=== PATIENT | male | born 1960 | race Caucasian/White ===

== ENCOUNTER 2017-11-15 20:26 | Inpatient (IN) | payer OTHER ==
[~2017-11-15] VITALS: Ht 160 cm; Wt 71.7 kg
[~2017-11-15 20:26] MED LIST: ALBU90AE INH; AMLO5TAB88 PO; BECL8.7A6 INH; NAPR-681 PO; PROAIR INH
[2017-11-16 01:16] LABS: CLARITY URINE CLOUDY (CLEAR); COLOR URINE ORANGE (YELLOW); KETONES URINE NEGATIVE (NEGATIVE); LEUKOCYTE ESTERASE URINE 1+ (NEGATIVE); NITRITE URINE POSITIVE (NEGATIVE); OCCULT BLOOD URINE 1+ (NEGATIVE); PROTEIN URINE 1+ (NEGATIVE); SPECIFIC GRAVITY URINE 1.037 (1.005-1.030); UROBILINOGEN URINE 0.2 E.U./dL (0.2-1.0)
[2017-11-16] MEDS ORDERED: SODIUM CHLORIDE 0.9% 1,000 ML IV ONE ×2 (01:29→03:15)
[2017-11-16] MEDS ORDERED: KETOROLAC 30MG/ML VIAL IV STA (01:29)
[2017-11-16] MEDS ORDERED: ONDANSETRON HCL 4MG/2ML VIAL IV ONE (01:45)
[2017-11-16 02:07] LABS: HEMATOCRIT. 42.1 % (42.0-52.0); HEMOGLOBIN. 14.5 g/dL (14.0-18.0); MEAN CORPUSCULAR HEMOGLOBIN 30.9 pg (28.0-32.0); MEAN PLATELET VOLUME 8.4 fl (7.4-10.4); PLATELET 205 x1000/uL (130-400); RED BLOOD CELL COUNT 4.68 mill/uL (4.7-6.1); RED CELL DISTRIBUTION WIDTH 13.7 % (11.6-14.6)
[2017-11-16 02:13] LABS: CHLORIDE 102 mEq/L (98-107); INR 1.5; PROTHROMBIN TIME 15.4 sec (9.4-11.6)
[2017-11-16 02:36] LABS: PLATELET ESTIMATE NORMAL
[2017-11-16] MEDS ORDERED: CEFTRIAXONE 1 G PREMIX 50 ML IV ONE (02:45)
[2017-11-16] MEDS ORDERED: MORPHINE SULFATE 4 MG/ML CPJ (NOT FOR IM USE) IV ONE (06:15)
[2017-11-16] MEDS ORDERED: GUAIFENESIN 200MG/10ML SUGAR FREE UDC PO PRN (10:30)
[2017-11-16] MEDS ORDERED: ACETAMINOPHEN 325MG TABLET PO PRN (10:30)
[2017-11-16] MEDS ORDERED: DIPHENHYDRAMINE 50MG/ML VIAL IV PRN (10:30)
[2017-11-16] MEDS ORDERED: CLONIDINE 0.1MG TABLET PO PRN (10:30)
[2017-11-16] MEDS ORDERED: ONDANSETRON HCL 4MG/2ML VIAL IV PRN (10:30)
[2017-11-16] MEDS ORDERED: IPRATROPIUM/ALBUTEROL 0.5-3(2.5)MG/3ML NEB INH PRN (10:30)
[2017-11-16] MEDS ORDERED: KETOROLAC 15MG/ML VIAL IV PRN (10:30)
[2017-11-16] MEDS ORDERED: DOCUSATE SODIUM 100MG CAPSULE PO PRN (10:30)
[2017-11-16] MEDS ORDERED: LORAZEPAM 0.5MG TABLET PO PRN (10:30)
[2017-11-16] MEDS ORDERED: NITROGLYCERIN 0.4MG TABLET SL SL PRN (10:30)
[2017-11-16] MEDS ORDERED: MAGNESIUM/ALUMINUM HYDROXIDE/SIMETHICONE 30ML UDC PO PRN (10:30)
[2017-11-16] MEDS ORDERED: PIPERACILLIN/TAZ 3.375G PREMIX 50 ML IV SCH (15:00)
[2017-11-16] MEDS ORDERED: NA PHOS,M-B/NA PHOS,DI-BA ENEMA 118ML PR PRN (15:14)
[2017-11-16] MEDS ORDERED: ZOLPIDEM TARTRATE 5MG TABLET PO PRN (15:16)
[2017-11-16] MEDS ORDERED: TRAMADOL 50MG TABLET PO PRN (15:17)
[2017-11-16 16:00] VITALS: BP 113/69
[2017-11-16] MEDS ORDERED: PNEUMOCOCCAL 23-VAL P-SAC VAC 0.5 ML IM ONE (16:45)
[2017-11-16] MEDS: PIPERACILLIN/TAZ 3.375G PREMIX 50 ML IV SCH ×2 (17:17→23:39)
[2017-11-16] MEDS: ENOXAPARIN 40MG/0.4ML SYR SUBCUT SCH (17:18)
[2017-11-16 20:00] VITALS: BP 124/73
[2017-11-16] MEDS: DEXT 5%/0.45% NACL 1000ML 1,000 ML IV SCH ×2 (20:17→20:21)
[2017-11-16] MEDS: MORPHINE SULFATE 4 MG/ML CPJ (NOT FOR IM USE) IV PRN (21:06)
[2017-11-16 23:43] VITALS: BP 114/72
[2017-11-17 03:10] VITALS: BP 142/75
[2017-11-17] MEDS: MORPHINE SULFATE 4 MG/ML CPJ (NOT FOR IM USE) IV PRN (03:16)
[2017-11-17] MEDS: PIPERACILLIN/TAZ 3.375G PREMIX 50 ML IV SCH ×4 (05:24→23:35)
[2017-11-17] MEDS: DEXT 5%/0.45% NACL 1000ML 1,000 ML IV SCH ×2 (06:01→18:50)
[2017-11-17 06:14] LABS: HEMATOCRIT 38.3 % (42.0-52.0); HEMOGLOBIN 12.8 g/dL (14.0-18.0); MEAN CORPUSCULAR HEMOGLOBIN 30.6 pg (28.0-32.0); MEAN CORPUSCULAR VOLUME 91.5 fL (80.0-94.0); PLATELET 133 x1000/uL (130-400); RED BLOOD CELL COUNT 4.18 mill/uL (4.7-6.1); RED CELL DISTRIBUTION WIDTH 13.9 % (11.6-14.6)
[2017-11-17 08:00] VITALS: BP 107/64
[2017-11-17] MEDS: PANTOPRAZOLE SODIUM 40 MG/VIAL IV SCH (09:27)
[2017-11-17 12:00] VITALS: BP 110/70
[2017-11-17 12:20] LABS: INR 1.3; PARTIAL THROMBOPLASTIN TIME 30.2 sec (23.4-31.0); PROTHROMBIN TIME 13.4 sec (9.4-11.6)
[2017-11-17 12:21] LABS: HEMATOCRIT 36.9 % (42.0-52.0); HEMOGLOBIN 12.6 g/dL (14.0-18.0); MEAN CORPUSCULAR HEMOGLOBIN 31.1 pg (28.0-32.0); MEAN CORPUSCULAR VOLUME 91.1 fL (80.0-94.0); PLATELET 112 x1000/uL (130-400); RED BLOOD CELL COUNT 4.05 mill/uL (4.7-6.1); RED CELL DISTRIBUTION WIDTH 14.1 % (11.6-14.6)
[2017-11-17 12:47] LABS: CHLORIDE 107 mEq/L (98-107)
[2017-11-17] MEDS ORDERED: IOHEXOL-300 100 ML BOTTLE ONE (13:13)
[2017-11-17] MEDS ORDERED: SIMETHICONE 40 MG/0.6 ML 30ML ONE (13:13)
[2017-11-17] MEDS ORDERED: METOCLOPRAMIDE HCL 10MG/2ML VIAL ONE (14:06)
[2017-11-17] MEDS ORDERED: SUCCINYLCHOLINE CHLORIDE 200MG/10ML VIAL IV ONE (14:06)
[2017-11-17] MEDS ORDERED: NEOSTIGMINE METHYLSULFATE 1MG/ML 10 ML VIAL ONE (14:06)
[2017-11-17] MEDS ORDERED: LIDOCAINE HCL/PF 1% 10 MG/ML 5ML VIAL ONE (14:06)
[2017-11-17] MEDS ORDERED: PROPOFOL 200MG/20ML VIAL IV ONE (14:06)
[2017-11-17] MEDS ORDERED: ROCURONIUM BROMIDE 10MG/ML VIAL 5ML IV ONE (14:06)
[2017-11-17] MEDS ORDERED: GLYCOPYRROLATE 0.2 MG/ML 2ML VIAL ONE ×2 (14:06→14:48)
[2017-11-17] MEDS ORDERED: PHENYLEPHRINE HCL 10 MG/ML 1ML (IV VIAL) IV ONE (14:06)
[2017-11-17] MEDS ORDERED: MIDAZOLAM HCL 2 MG/2 ML VIAL ONE (14:11)
[2017-11-17] MEDS ORDERED: FENTANYL CITRATE/PF 50MCG/ML 2ML VIAL ONE (14:11)
[2017-11-17] MEDS ORDERED: EPHEDRINE SULFATE 50MG/ML VIAL ONE (14:48)
[2017-11-17] MEDS ORDERED: DEXAMETHASONE 4MG/ML 1ML VIAL ONE (15:18)
[2017-11-17] MEDS ORDERED: SODIUM CHLORIDE 0.9% 1,000 ML IV ONE (15:22)
[2017-11-17] MEDS ORDERED: HYDROMORPHONE HCL/PF 2MG/ML CPJ IV PRN (15:30)
[2017-11-17] MEDS ORDERED: MEPERIDINE HCL/PF 25MG/ML CPJ IV PRN (15:30)
[2017-11-17] MEDS ORDERED: ONDANSETRON HCL 4MG/2ML VIAL IV PRN (15:30)
[2017-11-17 16:00] VITALS: BP 116/76
[2017-11-17] MEDS: ENOXAPARIN 40MG/0.4ML SYR SUBCUT SCH (16:00)
[2017-11-17 20:00] VITALS: BP 121/72
[2017-11-18] VITALS (7 sets, daily range): BP systolic 94–142; BP diastolic 50–76
[2017-11-18] MEDS: PIPERACILLIN/TAZ 3.375G PREMIX 50 ML IV SCH ×4 (05:30→23:02)
[2017-11-18] MEDS: DEXT 5%/0.45% NACL 1000ML 1,000 ML IV SCH ×3 (05:30→23:01)
[2017-11-18 07:02] LABS: BASOPHILS % 0.1 % (0.0-2.0); HEMATOCRIT. 34.5 % (42.0-52.0); HEMOGLOBIN. 11.8 g/dL (14.0-18.0); MEAN CORPUSCULAR HEMOGLOBIN 31.3 pg (28.0-32.0); MEAN CORPUSCULAR VOLUME 91.1 fL (80.0-94.0); MEAN PLATELET VOLUME 9.6 fl (7.4-10.4); MONOCYTES % 6.7 % (2.0-8.0); NEUTROPHILS % 82.2 % (40.0-76.0); PLATELET 99 x1000/uL (130-400); RED BLOOD CELL COUNT 3.79 mill/uL (4.7-6.1); RED CELL DISTRIBUTION WIDTH 13.7 % (11.6-14.6)
[2017-11-18 07:38] LABS: CHLORIDE 109 mEq/L (98-107)
[2017-11-18] MEDS: PANTOPRAZOLE SODIUM 40 MG/VIAL IV SCH (08:54)
[2017-11-19] VITALS: BP 136/72
[2017-11-19 04:30] VITALS: BP 130/74
[2017-11-19] MEDS: PIPERACILLIN/TAZ 3.375G PREMIX 50 ML IV SCH (05:09)
[2017-11-19 08:00] VITALS: BP 141/74
[2017-11-19] MEDS: PANTOPRAZOLE SODIUM 40 MG/VIAL IV SCH (09:08)
[2017-11-19] MEDS: DEXT 5%/0.45% NACL 1000ML 1,000 ML IV SCH (09:55)
[2017-11-19 11:02] VITALS: BP 140/74
== END 2017-11-19 12:01 | disposition home or self-care (01) | DRG 444 ==
LOC: ER 21:29 → 5WST 11-16 03:29 → ENRESERV 11-16 14:12 → 5WST 11-16 18:17
PROVIDERS: ADMIT Internal Medicine; ATTEND Internal Medicine
PROC: BF111ZZ Fluoroscopy of Biliary and Pancreatic Ducts using Low Osmolar Contrast (ICD-10-PCS; 2017-11-17)
PROC: 0F798DZ Dilation of Common Bile Duct with Intraluminal Device, Via Natural or Artificial Opening Endoscopic (ICD-10-PCS; 2017-11-17)
PROC: 0FC98ZZ Extirpation of Matter from Common Bile Duct, Via Natural or Artificial Opening Endoscopic (ICD-10-PCS; 2017-11-17)
PROC: 0F998ZZ Drainage of Common Bile Duct, Via Natural or Artificial Opening Endoscopic (ICD-10-PCS; principal; 2017-11-17 14:00)
DX: K80.63 Calculus of gallbladder and bile duct with acute cholecystitis with obstruction (principal); E43 Unspecified severe protein-calorie malnutrition; K76.0 Fatty (change of) liver, not elsewhere classified; N39.0 Urinary tract infection, site not specified; K80.31 Calculus of bile duct with cholangitis, unspecified, with obstruction; E80.6 Other disorders of bilirubin metabolism; F17.210 Nicotine dependence, cigarettes, uncomplicated; I10 Essential (primary) hypertension; J45.909 Unspecified asthma, uncomplicated; R74.0 Nonspecific elevation of levels of transaminase and lactic acid dehydrogenase [LDH]; D72.829 Elevated white blood cell count, unspecified; Z79.899 Other long term (current) drug therapy; Z71.6 Tobacco abuse counseling; Z82.49 Family history of ischemic heart disease and other diseases of the circulatory system; Z68.28 Body mass index [BMI] 28.0-28.9, adult
CPT/HCPCS: 36415; 74181; 74328; 76705; 80048; 80053; 80076; 81003; 82248; 83036; 83690; 85025; 85027; 85610; 85730; 87077; 87086; 90732; 93970; 96361; 96365; 96375; 99285; C1726; C1769; C2625; C9113; J0330; J0696; J1100; J1650; J1885; J2250; J2270; J2370; J2405; J2543; J2704; J2710; J2765; J3010; J3490; J7030; J7050; Q9967

== ENCOUNTER 2017-12-10 03:55 | Inpatient (IN) | payer MEDICARE, OTHER ==
[~2017-12-10] VITALS: Ht 160 cm; Wt 65.8 kg
[2017-12-10] MEDS ORDERED: ONDANSETRON HCL 4MG/2ML VIAL IV STA ×2 (08:08→10:43)
[2017-12-10] MEDS ORDERED: SODIUM CHLORIDE 0.9% 1,000 ML IV ONE ×2 (08:08→10:43)
[2017-12-10] MEDS ORDERED: MORPHINE SULFATE 4 MG/ML CPJ (NOT FOR IM USE) IV STA ×2 (08:08→10:43)
[2017-12-10 09:01] LABS: CLARITY URINE CLEAR (CLEAR); COLOR URINE DARK YELLOW (YELLOW); KETONES URINE NEGATIVE (NEGATIVE); LEUKOCYTE ESTERASE URINE 1+ (NEGATIVE); NITRITE URINE NEGATIVE (NEGATIVE); OCCULT BLOOD URINE NEGATIVE (NEGATIVE); PH URINE >=9.0 (4.5-8.0); PROTEIN URINE 1+ (NEGATIVE); SPECIFIC GRAVITY URINE 1.035 (1.005-1.030)
[2017-12-10 09:13] LABS: HEMATOCRIT. 40.4 % (42.0-52.0); HEMOGLOBIN. 13.9 g/dL (14.0-18.0); MEAN CORPUSCULAR HEMOGLOBIN 30.4 pg (28.0-32.0); MEAN CORPUSCULAR VOLUME 88.4 fL (80.0-94.0); MEAN PLATELET VOLUME 7.8 fl (7.4-10.4); PLATELET 231 x1000/uL (130-400); RED BLOOD CELL COUNT 4.56 mill/uL (4.7-6.1); RED CELL DISTRIBUTION WIDTH 13.7 % (11.6-14.6)
[2017-12-10 09:17] LABS: CHLORIDE 105 mEq/L (98-107)
[2017-12-10 09:52] LABS: PLATELET ESTIMATE NORMAL
[2017-12-10] MEDS ORDERED: PIPERACILLIN/TAZ 3.375G PREMIX 50 ML IV ONE (12:15)
[2017-12-10] MEDS ORDERED: ONDANSETRON HCL 4MG/2ML VIAL IV PRN (14:30)
[2017-12-10] MEDS ORDERED: MORPHINE SULFATE 4 MG/ML CPJ (NOT FOR IM USE) IV PRN (14:30)
[2017-12-10] MEDS ORDERED: ACETAMINOPHEN 500MG TABLET PO ONE (21:30)
[2017-12-10 23:11] VITALS: BP 107/66
[2017-12-11] MEDS: PIPERACILLIN/TAZ 3.375G PREMIX 50 ML IV SCH ×3 (01:02→14:57)
[2017-12-11] MEDS: PANTOPRAZOLE SODIUM 40 MG/VIAL IV SCH ×2 (01:02→09:22)
[2017-12-11] MEDS: DEXT 5%/0.45% NACL 1000ML 1,000 ML IV SCH ×3 (01:03→14:56)
[2017-12-11 06:44] LABS: BASOPHILS % 0.1 % (0.0-2.0); EOSINOPHILS % 2.6 % (0.0-5.0); HEMATOCRIT. 36.1 % (42.0-52.0); HEMOGLOBIN. 12.5 g/dL (14.0-18.0); LYMPHOCYTES % 21.3 % (20.0-50.0); MEAN CORPUSCULAR VOLUME 89.6 fL (80.0-94.0); MEAN PLATELET VOLUME 7.9 fl (7.4-10.4); MONOCYTES % 7.8 % (2.0-8.0); NEUTROPHILS % 68.2 % (40.0-76.0); PLATELET 177 x1000/uL (130-400); RED BLOOD CELL COUNT 4.03 mill/uL (4.7-6.1); RED CELL DISTRIBUTION WIDTH 13.9 % (11.6-14.6)
[2017-12-11 06:55] LABS: INR 1.4; PARTIAL THROMBOPLASTIN TIME 27.4 sec (23.4-31.0); PROTHROMBIN TIME 14.5 sec (9.4-11.6)
[2017-12-11 07:38] LABS: CHLORIDE 110 mEq/L (98-107)
[2017-12-11 08:00] VITALS: BP 106/62
[2017-12-11 12:00] VITALS: BP 90/57
[2017-12-11 12:46] LABS: HEPATITIS B SURFACE ANTIGEN NEGATIVE
[2017-12-11 13:13] LABS: HEPATITIS B CORE AB IGM NEGATIVE
[2017-12-11 13:15] LABS: HEPATITIS A AB IGM NEGATIVE (NEGATIVE)
[2017-12-11 18:08] VITALS: BP 119/72
== END 2017-12-11 18:26 | disposition home or self-care (01) | DRG 445 ==
LOC: ER 03:55 → 6EST 13:05 → ENRESERV 19:00
PROVIDERS: ADMIT Internal Medicine; ATTEND Internal Medicine
DX: K80.70 Calculus of gallbladder and bile duct without cholecystitis without obstruction (principal); E44.1 Mild protein-calorie malnutrition; E87.8 Other disorders of electrolyte and fluid balance, not elsewhere classified; N39.0 Urinary tract infection, site not specified; F17.210 Nicotine dependence, cigarettes, uncomplicated; I10 Essential (primary) hypertension; J45.909 Unspecified asthma, uncomplicated; K57.30 Diverticulosis of large intestine without perforation or abscess without bleeding; R74.0 Nonspecific elevation of levels of transaminase and lactic acid dehydrogenase [LDH]; Z86.73 Personal history of transient ischemic attack (TIA), and cerebral infarction without residual deficits; Z87.440 Personal history of urinary (tract) infections; Z90.49 Acquired absence of other specified parts of digestive tract; Z79.899 Other long term (current) drug therapy; Z68.25 Body mass index [BMI] 25.0-25.9, adult
CPT/HCPCS: 36415; 71045; 74176; 74181; 76700; 80053; 81003; 82248; 83690; 85025; 85610; 85730; 86705; 86709; 86803; 87040; 87340; 93005; 96361; 96365; 96375; 96376; 99285; C9113; J2270; J2405; J2543; J7030

== ENCOUNTER 2020-02-04 20:23 | Inpatient (IN) | payer SELFPAY ==
[~2020-02-04] VITALS: Ht 160 cm; Wt 63.5 kg
[2020-02-04] MEDS ORDERED: FAMOTIDINE 20MG/2ML VIAL IV STA (20:39)
[2020-02-04] MEDS ORDERED: MORPHINE SULFATE 4 MG/ML CPJ (NOT FOR IM USE) IV STA (20:39)
[2020-02-04] MEDS ORDERED: ONDANSETRON HCL 4MG/2ML INJ IV STA (20:39)
[2020-02-04] MEDS ORDERED: SODIUM CHLORIDE 0.9% 1,000 ML IV ONE (20:39)
[2020-02-04 21:11] LABS: HEMATOCRIT. 41.3 % (42.0-52.0); HEMOGLOBIN. 14.2 g/dL (14.0-18.0); MEAN CORPUSCULAR HEMOGLOBIN 31.3 pg (28.0-32.0); MEAN CORPUSCULAR VOLUME 90.7 fL (80.0-94.0); MEAN PLATELET VOLUME 8.3 fl (7.4-10.4); PLATELET 369 x1000/uL (130-400); RED BLOOD CELL COUNT 4.55 mill/uL (4.7-6.1); RED CELL DISTRIBUTION WIDTH 13.8 % (11.6-14.6)
[2020-02-04 21:15] LABS: CHLORIDE 103 mEq/L (98-107)
[2020-02-04 21:19] LABS: ETHANOL BLOOD < 10 mg/dL
[2020-02-04 21:21] LABS: INR 1.1; PROTHROMBIN TIME 11.7 sec (9.6-11.0)
[2020-02-04] MEDS ORDERED: PIPERACILLIN/TAZ 3.375G PREMIX 50 ML IV ONE (21:45)
[2020-02-04 22:01] LABS: PLATELET ESTIMATE NORMAL
[2020-02-04 22:14] LABS: AMYLASE 64 IU/L (25-115)
[2020-02-04] MEDS: PIPERACILLIN/TAZ 3.375G PREMIX 50 ML IV SCH (23:00)
[2020-02-04] MEDS ORDERED: ONDANSETRON HCL 4MG/2ML INJ IV PRN (23:15)
[2020-02-04] MEDS ORDERED: LORAZEPAM 0.5MG TABLET PO PRN (23:15)
[2020-02-04] MEDS ORDERED: DOCUSATE SODIUM 100MG CAPSULE PO PRN (23:15)
[2020-02-04] MEDS ORDERED: TRAMADOL 50MG TABLET PO PRN (23:15)
[2020-02-04] MEDS ORDERED: IPRATROPIUM/ALBUTEROL 0.5-3(2.5)MG/3ML NEB ORI PRN (23:15)
[2020-02-04] MEDS ORDERED: NITROGLYCERIN 0.4MG TABLET SL SL PRN (23:15)
[2020-02-04] MEDS ORDERED: ACETAMINOPHEN 325MG TABLET PO PRN (23:15)
[2020-02-04] MEDS ORDERED: MAGNESIUM/ALUMINUM HYDROXIDE/SIMETHICONE 30ML UDC PO PRN (23:15)
[2020-02-04] MEDS ORDERED: GUAIFENESIN 200MG/10ML SUGAR FREE UDC PO PRN (23:15)
[2020-02-04] MEDS ORDERED: ZOLPIDEM TARTRATE 5MG TABLET PO PRN (23:15)
[2020-02-04] MEDS ORDERED: CLONIDINE 0.1MG TABLET PO PRN (23:15)
[2020-02-04] MEDS ORDERED: KETOROLAC 15MG/ML VIAL IV PRN (23:15)
[2020-02-04 23:18] LABS: CLARITY URINE CLEAR (CLEAR); COLOR URINE DARK YELLOW (YELLOW); KETONES URINE NEGATIVE (NEGATIVE); LEUKOCYTE ESTERASE URINE 1+ (NEGATIVE); NITRITE URINE POSITIVE (NEGATIVE); OCCULT BLOOD URINE TRACE (NEGATIVE); PROTEIN URINE 1+ (NEGATIVE); SPECIFIC GRAVITY URINE 1.022 (1.005-1.030)
[2020-02-04 23:28] LABS: *AMPHETAMINES SCREEN URINE NEGATIVE (NEGATIVE); *BARBITURATES SCREEN URINE NEGATIVE (NEGATIVE); *BENZODIAZEPINES SCREEN URINE NEGATIVE (NEGATIVE); CANNABINOID URINE SCREEN NEGATIVE (NEGATIVE); METHADONE URINE SCREEN NEGATIVE (NEGATIVE); OPIATES URINE SCREEN PRESUMTIVE POSITIVE (NEGATIVE); PHENCYCLIDINE URINE SCREEN NEGATIVE (NEGATIVE)
[2020-02-04 23:29] LABS: *COCAINE SCREEN URINE NEGATIVE (NEGATIVE)
[2020-02-04] MEDS: DEXT 5%/0.45% NACL 1000ML 1,000 ML IV SCH (23:32)
[2020-02-05] MEDS: PIPERACILLIN/TAZ 3.375G PREMIX 50 ML IV SCH (01:06)
[2020-02-05] MEDS: ASCORBIC ACID 500 MG TABLET PO SCH ×2 (08:47→22:35)
[2020-02-05] MEDS: ZINC SULFATE 220 MG ( 50 ) CAPSULE PO SCH (08:47)
[2020-02-05] MEDS: PANTOPRAZOLE SODIUM 40 MG/VIAL IV SCH (08:56)
[2020-02-05] MEDS ORDERED: ENOXAPARIN 40MG/0.4ML SYR SUBCUT SCH (09:00)
[2020-02-05] MEDS: AMLODIPINE 5MG TABLET PO SCH (09:23)
[2020-02-05] MEDS ORDERED: PIPERACILLIN/TAZ 3.375G PREMIX 50 ML IV SCH (10:30)
[2020-02-05 13:29] LABS: HEMATOCRIT 36.1 % (42.0-52.0); HEMOGLOBIN 12.5 g/dL (14.0-18.0); MEAN CORPUSCULAR HEMOGLOBIN 31.4 pg (28.0-32.0); MEAN CORPUSCULAR VOLUME 90.5 fL (80.0-94.0); PLATELET 299 x1000/uL (130-400); RED BLOOD CELL COUNT 3.99 mill/uL (4.7-6.1); RED CELL DISTRIBUTION WIDTH 13.9 % (11.6-14.6)
[2020-02-05 13:31] LABS: CHLORIDE 107 mEq/L (98-107)
[2020-02-05 15:09] VITALS: BP 122/65
[2020-02-05] MEDS: PIPERACILLIN/TAZOBACTAM 3.375 G in DEXT 5% WATER 100 ML IV SCH (18:18)
[2020-02-05 20:00] VITALS: BP 118/64
[2020-02-05] MEDS: DEXT 5%/0.45% NACL 1000ML 1,000 ML IV SCH (22:36)
[2020-02-06] VITALS: BP 115/62
[2020-02-06] MEDS: PIPERACILLIN/TAZOBACTAM 3.375 G in DEXT 5% WATER 100 ML IV SCH ×4 (00:05→18:52)
[2020-02-06 04:00] VITALS: BP 107/66
[2020-02-06 05:38] LABS: CHLORIDE 109 mEq/L (98-107)
[2020-02-06 05:40] LABS: BASOPHILS % 0.3 % (0.0-2.0); EOSINOPHILS % 1.5 % (0.0-5.0); HEMATOCRIT. 35.4 % (42.0-52.0); HEMOGLOBIN. 12.1 g/dL (14.0-18.0); LYMPHOCYTES % 23.5 % (20.0-50.0); MEAN CORPUSCULAR HEMOGLOBIN 31.3 pg (28.0-32.0); MEAN CORPUSCULAR VOLUME 91.5 fL (80.0-94.0); MEAN PLATELET VOLUME 8.8 fl (7.4-10.4); MONOCYTES % 6.6 % (2.0-8.0); NEUTROPHILS % 68.1 % (40.0-76.0); PLATELET 262 x1000/uL (130-400); RED BLOOD CELL COUNT 3.87 mill/uL (4.7-6.1); RED CELL DISTRIBUTION WIDTH 14.3 % (11.6-14.6)
[2020-02-06 05:45] LABS: INR 1.2; PARTIAL THROMBOPLASTIN TIME 29.7 sec (23.4-31.0); PROTHROMBIN TIME 12.7 sec (9.6-11.0)
[2020-02-06 08:00] VITALS: BP 120/62
[2020-02-06] MEDS: ZINC SULFATE 220 MG ( 50 ) CAPSULE PO SCH (09:00)
[2020-02-06] MEDS: AMLODIPINE 5MG TABLET PO SCH (09:00)
[2020-02-06] MEDS: ASCORBIC ACID 500 MG TABLET PO SCH ×2 (09:00→21:24)
[2020-02-06] MEDS: PANTOPRAZOLE SODIUM 40 MG/VIAL IV SCH (09:18)
[2020-02-06 12:00] VITALS: BP 123/70
[2020-02-06] MEDS ORDERED: IOHEXOL-300 100 ML BOTTLE ONE (13:01)
[2020-02-06] MEDS: DEXT 5%/0.45% NACL 1000ML 1,000 ML IV SCH (15:01)
[2020-02-06] MEDS ORDERED: ROCURONIUM BROMIDE 10MG/ML VIAL 5ML IV ONE (16:16)
[2020-02-06] MEDS ORDERED: MIDAZOLAM HCL 2 MG/2 ML VIAL ONE (16:16)
[2020-02-06] MEDS ORDERED: FENTANYL CITRATE/PF 50MCG/ML 2ML VIAL ONE (16:16)
[2020-02-06] MEDS ORDERED: PROPOFOL 200MG/20ML VIAL IV ONE (16:16)
[2020-02-06] MEDS ORDERED: NEOSTIGMINE METHYLSULFATE 1MG/ML 10 ML VIAL ONE (16:47)
[2020-02-06] MEDS ORDERED: SUCCINYLCHOLINE CHLORIDE 200MG/10ML IV ONE (16:47)
[2020-02-06] MEDS ORDERED: LIDOCAINE HCL/PF 1% 10 MG/ML 5ML VIAL ONE (16:47)
[2020-02-06] MEDS ORDERED: GLYCOPYRROLATE 0.2 MG/ML 2ML VIAL ONE (16:48)
[2020-02-06] MEDS ORDERED: DEXAMETHASONE 4MG/ML 1ML VIAL ONE (17:33)
[2020-02-06 20:00] VITALS: BP 117/75
[2020-02-06 20:06] LABS: BASOPHILS % 0.1 % (0.0-2.0); EOSINOPHILS % 0.2 % (0.0-5.0); HEMATOCRIT. 39.1 % (42.0-52.0); HEMOGLOBIN. 13.3 g/dL (14.0-18.0); LYMPHOCYTES % 9.2 % (20.0-50.0); MEAN CORPUSCULAR HEMOGLOBIN 31.4 pg (28.0-32.0); MEAN CORPUSCULAR VOLUME 92.5 fL (80.0-94.0); MEAN PLATELET VOLUME 8.8 fl (7.4-10.4); MONOCYTES % 1.8 % (2.0-8.0); NEUTROPHILS % 88.7 % (40.0-76.0); PLATELET 267 x1000/uL (130-400); RED BLOOD CELL COUNT 4.23 mill/uL (4.7-6.1); RED CELL DISTRIBUTION WIDTH 14.2 % (11.6-14.6)
[2020-02-06 20:07] LABS: CHLORIDE 106 mEq/L (98-107)
[2020-02-06] MEDS: ACETAMINOPHEN 325MG TABLET PO PRN (21:49)
[2020-02-07] VITALS: BP 109/51
[2020-02-07] MEDS: PIPERACILLIN/TAZOBACTAM 3.375 G in DEXT 5% WATER 100 ML IV SCH ×5 (00:18→23:21)
[2020-02-07 04:00] VITALS: BP 118/57
[2020-02-07 05:15] VITALS: BP 132/64
[2020-02-07 06:50] LABS: BASOPHILS % 0.1 % (0.0-2.0); HEMOGLOBIN. 12.1 g/dL (14.0-18.0); LYMPHOCYTES % 18.4 % (20.0-50.0); MEAN CORPUSCULAR HEMOGLOBIN 31.2 pg (28.0-32.0); MEAN CORPUSCULAR VOLUME 92.7 fL (80.0-94.0); MEAN PLATELET VOLUME 9.2 fl (7.4-10.4); MONOCYTES % 5.3 % (2.0-8.0); NEUTROPHILS % 76.2 % (40.0-76.0); PLATELET 249 x1000/uL (130-400); RED BLOOD CELL COUNT 3.89 mill/uL (4.7-6.1); RED CELL DISTRIBUTION WIDTH 13.8 % (11.6-14.6)
[2020-02-07 07:43] LABS: CHLORIDE 107 mEq/L (98-107)
[2020-02-07] MEDS: ASCORBIC ACID 500 MG TABLET PO SCH ×2 (08:42→20:43)
[2020-02-07] MEDS: ZINC SULFATE 220 MG ( 50 ) CAPSULE PO SCH (08:42)
[2020-02-07] MEDS: PANTOPRAZOLE SODIUM 40 MG/VIAL IV SCH (08:42)
[2020-02-07] MEDS: AMLODIPINE 5MG TABLET PO SCH (08:49)
[2020-02-07] MEDS: DEXT 5%/0.45% NACL 1000ML 1,000 ML IV SCH ×2 (11:20→20:45)
[2020-02-07 20:00] VITALS: BP 122/66
[2020-02-07] MEDS: ACETAMINOPHEN 325MG TABLET PO PRN (20:44)
[2020-02-08] VITALS: BP 113/65
[2020-02-08 04:00] VITALS: BP 132/71
[2020-02-08] MEDS: PIPERACILLIN/TAZOBACTAM 3.375 G in DEXT 5% WATER 100 ML IV SCH ×4 (05:11→23:46)
[2020-02-08] MEDS: DEXT 5%/0.45% NACL 1000ML 1,000 ML IV SCH ×2 (05:12→16:21)
[2020-02-08 08:00] VITALS: BP 136/73
[2020-02-08] MEDS: PANTOPRAZOLE SODIUM 40 MG/VIAL IV SCH (08:57)
[2020-02-08] MEDS: ASCORBIC ACID 500 MG TABLET PO SCH ×2 (08:57→20:25)
[2020-02-08] MEDS: ZINC SULFATE 220 MG ( 50 ) CAPSULE PO SCH (08:57)
[2020-02-08] MEDS: AMLODIPINE 5MG TABLET PO SCH (08:57)
[2020-02-08 12:00] VITALS: BP 136/73
[2020-02-08 16:00] VITALS: BP 129/70
[2020-02-08 20:00] VITALS: BP 121/73
[2020-02-09] VITALS: BP 122/75
[2020-02-09 04:00] VITALS: BP 118/65
[2020-02-09] MEDS: DEXT 5%/0.45% NACL 1000ML 1,000 ML IV SCH (05:47)
[2020-02-09] MEDS: PIPERACILLIN/TAZOBACTAM 3.375 G in DEXT 5% WATER 100 ML IV SCH ×2 (05:47→11:27)
[2020-02-09] MEDS ORDERED: OMEPRAZOLE 20MG CAPSULE EXTENDED RELEASE PO SCH (07:20)
[2020-02-09 08:00] VITALS: BP 121/65
[2020-02-09] MEDS: AMLODIPINE 5MG TABLET PO SCH (08:52)
[2020-02-09] MEDS: ASCORBIC ACID 500 MG TABLET PO SCH (08:52)
[2020-02-09] MEDS: ZINC SULFATE 220 MG ( 50 ) CAPSULE PO SCH (08:52)
[2020-02-09 12:00] VITALS: BP 119/61
[2020-02-09 12:46] VITALS: BP 119/61
== END 2020-02-09 13:48 | disposition home or self-care (01) | DRG 720 ==
LOC: ER 20:23 → 6EST 22:59 → EDBEDREQTM 23:01 → EDBEDREQSVC 23:01 → EDBEDREQ 23:01
PROVIDERS: ADMIT Internal Medicine; ATTEND Internal Medicine
PROC: 0F798ZZ Dilation of Common Bile Duct, Via Natural or Artificial Opening Endoscopic (ICD-10-PCS; principal; 2020-02-06)
PROC: BF141ZZ Fluoroscopy of Gallbladder, Bile Ducts and Pancreatic Ducts using Low Osmolar Contrast (ICD-10-PCS; 2020-02-06)
PROC: 0FPB8DZ Removal of Intraluminal Device from Hepatobiliary Duct, Via Natural or Artificial Opening Endoscopic (ICD-10-PCS; 2020-02-06)
DX: A41.50 Gram-negative sepsis, unspecified (principal); E44.0 Moderate protein-calorie malnutrition; K76.0 Fatty (change of) liver, not elsewhere classified; K86.89 Other specified diseases of pancreas; K80.61 Calculus of gallbladder and bile duct with cholecystitis, unspecified, with obstruction; E86.0 Dehydration; I10 Essential (primary) hypertension; N39.0 Urinary tract infection, site not specified; T85.858A Stenosis due to other internal prosthetic devices, implants and grafts, initial encounter; Y83.1 Surgical operation with implant of artificial internal device as the cause of abnormal reaction of the patient, or of later complication, without mention of misadventure at the time of the procedure; J45.909 Unspecified asthma, uncomplicated; K57.90 Diverticulosis of intestine, part unspecified, without perforation or abscess without bleeding; Z68.24 Body mass index [BMI] 24.0-24.9, adult; Z79.899 Other long term (current) drug therapy; Y92.89 Other specified places as the place of occurrence of the external cause
CPT/HCPCS: 36415; 74181; 74328; 76700; 80048; 80053; 80061; 80076; 80305; 80320; 81003; 82150; 83036; 83605; 83615; 84145; 85025; 85027; 87077; 87186; 93005; 93970; 99285; C1726; C1769; C9113; J0330; J1100; J1885; J2250; J2270; J2405; J2543; J2704; J2710; J3010; J3490; J7030; J7060; Q9967; G0480

== ENCOUNTER 2020-12-14 07:34 | Inpatient (IN) | payer MEDICAID ==
[~2020-12-14] VITALS: Ht 160 cm; Wt 72.6 kg
[~2020-12-14 07:34] MED LIST changes: -NAPR-681 PO
[2020-12-14] MEDS ORDERED: SODIUM CHLORIDE 0.9% 1000ML BAG (SEPSIS BOLUS) IV ONE (08:45)
[2020-12-14] MEDS ORDERED: PIPERACILLIN/TAZ 3.375G PREMIX 50 ML IV ONE (08:45)
[2020-12-14] MEDS ORDERED: ONDANSETRON HCL 4MG/2ML INJ IV STA (08:45)
[2020-12-14] MEDS ORDERED: MORPHINE SULFATE 4 MG/ML CPJ (NOT FOR IM USE) IV STA (08:45)
[2020-12-14 09:15] LABS: HEMATOCRIT. 46.4 % (42.0-52.0); HEMOGLOBIN. 15.7 g/dL (14.0-18.0); MEAN CORPUSCULAR HEMOGLOBIN 30.1 pg (28.0-32.0); MEAN CORPUSCULAR VOLUME 89.1 fL (80.0-94.0); MEAN PLATELET VOLUME 7.9 fl (7.4-10.4); PLATELET 267 x1000/uL (130-400); RED BLOOD CELL COUNT 5.21 mill/uL (4.7-6.1); RED CELL DISTRIBUTION WIDTH 13.5 % (11.6-14.6)
[2020-12-14 09:18] LABS: CHLORIDE 103 mEq/L (98-107)
[2020-12-14 09:21] LABS: AMYLASE 50 IU/L (25-115)
[2020-12-14 09:22] LABS: INR 1.1; PROTHROMBIN TIME 12.2 sec (9.6-11.0)
[2020-12-14 10:18] LABS: PLATELET ESTIMATE NORMAL
[2020-12-14 11:29] LABS: CLARITY URINE CLEAR (CLEAR); COLOR URINE YELLOW (YELLOW); KETONES URINE 1+ (NEGATIVE); LEUKOCYTE ESTERASE URINE NEGATIVE (NEGATIVE); NITRITE URINE NEGATIVE (NEGATIVE); OCCULT BLOOD URINE NEGATIVE (NEGATIVE); PH URINE 7.5 (4.5-8.0); PROTEIN URINE NEGATIVE (NEGATIVE); SPECIFIC GRAVITY URINE 1.014 (1.005-1.030)
[2020-12-14 12:00] VITALS: BP 145/79
[2020-12-14] MEDS ORDERED: ONDANSETRON HCL 4MG/2ML INJ IV PRN (13:15)
[2020-12-14] MEDS ORDERED: HYDROMORPHONE HCL/PF 2MG/ML CPJ IV PRN (13:15)
[2020-12-14] MEDS ORDERED: ACETAMINOPHEN 650MG SUPP PR PRN (13:15)
[2020-12-14] MEDS: HYDROMORPHONE HCL/PF 2MG/ML CPJ IV PRN ×3 (13:30→23:41)
[2020-12-14] MEDS ORDERED: ENALAPRIL 0.625 MG in DEXTROSE 5% WATER 49.5 ML IV PRN (13:30)
[2020-12-14] MEDS: DEXT 5%/0.45% NACL 1000ML 1,000 ML IV SCH (13:33)
[2020-12-14] MEDS: LEVOFLOXACIN 500MG PREMIX 100 ML IV SCH (15:20)
[2020-12-14] MEDS: METRONIDAZOLE 500 MG PREMIX 100 ML IV SCH (15:21)
[2020-12-14 16:00] VITALS: BP 119/80
[2020-12-14 20:00] VITALS: BP 141/81
[2020-12-15] VITALS: BP 134/78
[2020-12-15] MEDS: METRONIDAZOLE 500 MG PREMIX 100 ML IV SCH ×4 (00:29→22:21)
[2020-12-15] MEDS: HYDROMORPHONE HCL/PF 2MG/ML CPJ IV PRN ×6 (03:03→22:22)
[2020-12-15] MEDS: DEXT 5%/0.45% NACL 1000ML 1,000 ML IV SCH ×2 (03:12→17:50)
[2020-12-15 04:00] VITALS: BP 111/78
[2020-12-15 06:18] LABS: CHLORIDE 107 mEq/L (98-107)
[2020-12-15 06:43] LABS: HEMOGLOBIN. 14.3 g/dL (14.0-18.0); MEAN CORPUSCULAR HEMOGLOBIN 30.4 pg (28.0-32.0); MEAN CORPUSCULAR VOLUME 89.6 fL (80.0-94.0); MEAN PLATELET VOLUME 8.5 fl (7.4-10.4); PLATELET 207 x1000/uL (130-400); RED BLOOD CELL COUNT 4.69 mill/uL (4.7-6.1); RED CELL DISTRIBUTION WIDTH 13.9 % (11.6-14.6)
[2020-12-15 08:00] VITALS: BP 122/78
[2020-12-15] MEDS: LEVOFLOXACIN 500MG PREMIX 100 ML IV SCH (12:32)
[2020-12-15 16:00] VITALS: BP 146/84
[2020-12-15 20:00] VITALS: BP 138/87
[2020-12-15 22:19] VITALS: BP 138/87
[2020-12-16] VITALS: BP 127/84
[2020-12-16] MEDS: HYDROMORPHONE HCL/PF 2MG/ML CPJ IV PRN ×5 (01:56→13:15)
[2020-12-16 04:00] VITALS: BP 111/84
[2020-12-16] MEDS: METRONIDAZOLE 500 MG PREMIX 100 ML IV SCH ×3 (06:27→21:56)
[2020-12-16] MEDS: DEXT 5%/0.45% NACL 1000ML 1,000 ML IV SCH (06:27)
[2020-12-16 08:00] VITALS: BP 138/88
[2020-12-16] MEDS ORDERED: BUPIVACAINE HCL/PF 0.5% (5MG/ML) 10ML ONE ×2 (08:41→10:34)
[2020-12-16] MEDS ORDERED: SKIN ADHESIVE 0.7 GM EA TOP ONE (08:41)
[2020-12-16] MEDS ORDERED: PROPOFOL 200MG/20ML VIAL IV ONE (10:35)
[2020-12-16] MEDS ORDERED: FENTANYL CITRATE/PF 50MCG/ML 5ML VIAL ONE (10:35)
[2020-12-16] MEDS ORDERED: MIDAZOLAM HCL 2 MG/2 ML VIAL ONE (10:36)
[2020-12-16] MEDS ORDERED: ROCURONIUM BROMIDE 10MG/ML VIAL 5ML IV ONE (10:37)
[2020-12-16] MEDS ORDERED: NEOSTIGMINE METHYLSULFATE 1MG/ML 10 ML VIAL ONE (10:37)
[2020-12-16] MEDS ORDERED: GLYCOPYRROLATE 0.2 MG/ML 2ML VIAL ONE (10:37)
[2020-12-16] MEDS ORDERED: ONDANSETRON HCL 4MG/2ML INJ ONE (10:38)
[2020-12-16] MEDS ORDERED: METOCLOPRAMIDE HCL 10MG/2ML VIAL ONE (10:38)
[2020-12-16] MEDS ORDERED: CEFAZOLIN SODIUM 1000MG/VIAL ONE (10:47)
[2020-12-16] MEDS ORDERED: FENTANYL CITRATE/PF 50MCG/ML 2ML VIAL ONE (11:05)
[2020-12-16] MEDS ORDERED: MORPHINE SULFATE 2 MG/ML CPJ (NOT FOR IM USE) IV PRN ×2 (12:00→15:30)
[2020-12-16] MEDS ORDERED: ONDANSETRON HCL 4MG/2ML INJ IV PRN (12:00)
[2020-12-16] MEDS ORDERED: SODIUM CHLORIDE 0.9% 1,000 ML IV ONE (12:00)
[2020-12-16] MEDS: MEPERIDINE HCL/PF 25MG/ML CPJ IV PRN ×2 (12:46→15:40)
[2020-12-16] MEDS ORDERED: ONDANSETRON HCL 4MG/2ML INJ IV SCH (13:30)
[2020-12-16] MEDS ORDERED: ONDANSETRON HCL 4MG/2ML INJ IV ONE (13:30)
[2020-12-16 14:00] LABS: PLATELET ESTIMATE NORMAL
[2020-12-16 14:30] VITALS: BP 135/86
[2020-12-16 14:35] VITALS: BP 135/86
[2020-12-16] MEDS ORDERED: HYDROCODONE/ACETAMINOPHEN 5/325MG TABLET PO PRN (15:30)
[2020-12-16] MEDS: LEVOFLOXACIN 500MG PREMIX 100 ML IV SCH (15:38)
[2020-12-16] MEDS: MORPHINE SULFATE 4 MG/ML CPJ (NOT FOR IM USE) IV PRN ×2 (17:17→20:45)
[2020-12-16] MEDS: DEXT 5%/0.45% NACL KCL 20MEQ/L 1,000 ML IV SCH (17:26)
[2020-12-16 20:00] VITALS: BP 124/70
[2020-12-16] MEDS: ONDANSETRON HCL 4MG/2ML INJ IV PRN (20:44)
[2020-12-16] MEDS: SODIUM CHLORIDE 0.9% INJ 3ML FLUSH IVF SCH (21:57)
[2020-12-17] VITALS: BP 127/83
[2020-12-17] MEDS: MORPHINE SULFATE 4 MG/ML CPJ (NOT FOR IM USE) IV PRN ×3 (01:01→12:58)
[2020-12-17] MEDS: DEXT 5%/0.45% NACL KCL 20MEQ/L 1,000 ML IV SCH (02:10)
[2020-12-17 04:00] VITALS: BP 144/93
[2020-12-17] MEDS: SODIUM CHLORIDE 0.9% INJ 3ML FLUSH IVF SCH ×3 (05:43→21:05)
[2020-12-17] MEDS: METRONIDAZOLE 500 MG PREMIX 100 ML IV SCH ×3 (05:43→21:05)
[2020-12-17 08:00] VITALS: BP 145/56
[2020-12-17] MEDS: HYDROCODONE/ACETAMINOPHEN 5/325MG TABLET PO PRN (08:53)
[2020-12-17] MEDS: ONDANSETRON HCL 4MG/2ML INJ IV PRN ×2 (10:52→21:05)
[2020-12-17] MEDS: SODIUM CHLORIDE 0.9% 1,000 ML IV SCH ×2 (11:15→23:56)
[2020-12-17 12:00] VITALS: BP 142/89
[2020-12-17] MEDS: LEVOFLOXACIN 500MG PREMIX 100 ML IV SCH (14:59)
[2020-12-17 16:00] VITALS: BP 153/83
[2020-12-17 20:00] VITALS: BP 151/84
[2020-12-18] VITALS: BP 137/84
[2020-12-18 04:00] VITALS: BP 139/82
[2020-12-18] MEDS: HYDROCODONE/ACETAMINOPHEN 5/325MG TABLET PO PRN ×2 (04:15→20:30)
[2020-12-18] MEDS: METRONIDAZOLE 500 MG PREMIX 100 ML IV SCH ×3 (05:05→21:49)
[2020-12-18] MEDS: SODIUM CHLORIDE 0.9% INJ 3ML FLUSH IVF SCH ×3 (05:05→21:49)
[2020-12-18] MEDS: ONDANSETRON HCL 4MG/2ML INJ IV PRN (05:05)
[2020-12-18 08:00] VITALS: BP 154/77
[2020-12-18 12:00] VITALS: BP 144/78
[2020-12-18] MEDS: PANTOPRAZOLE SODIUM 40 MG/VIAL IV SCH (12:25)
[2020-12-18] MEDS: SODIUM CHLORIDE 0.9% 1,000 ML IV SCH (13:55)
[2020-12-18 14:55] LABS: HEMATOCRIT. 28.1 % (42.0-52.0); HEMOGLOBIN. 9.8 g/dL (14.0-18.0); LYMPHOCYTES % 7.8 % (20.0-50.0); MEAN CORPUSCULAR HEMOGLOBIN 30.5 pg (28.0-32.0); MEAN CORPUSCULAR VOLUME 87.9 fL (80.0-94.0); MEAN PLATELET VOLUME 7.5 fl (7.4-10.4); MONOCYTES % 3.7 % (2.0-8.0); NEUTROPHILS % 88.5 % (40.0-76.0); PLATELET 160 x1000/uL (130-400); RED CELL DISTRIBUTION WIDTH 13.9 % (11.6-14.6)
[2020-12-18 15:05] LABS: CHLORIDE 105 mEq/L (98-107)
[2020-12-18 16:00] VITALS: BP 144/72
[2020-12-18] MEDS: LEVOFLOXACIN 500MG PREMIX 100 ML IV SCH ×2 (16:23→16:24)
[2020-12-18 20:00] VITALS: BP 134/73
[2020-12-18] MEDS: GUAIFENESIN 200MG/10ML SUGAR FREE UDC PO PRN (22:32)
[2020-12-19] VITALS: BP 130/76
[2020-12-19] MEDS: SODIUM CHLORIDE 0.9% 1,000 ML IV SCH (03:57)
[2020-12-19 04:00] VITALS: BP 125/68
[2020-12-19] MEDS: ONDANSETRON HCL 4MG/2ML INJ IV PRN (04:18)
[2020-12-19] MEDS: METRONIDAZOLE 500 MG PREMIX 100 ML IV SCH (06:02)
[2020-12-19] MEDS: SODIUM CHLORIDE 0.9% INJ 3ML FLUSH IVF SCH ×2 (06:02→14:11)
[2020-12-19] MEDS: GUAIFENESIN 200MG/10ML SUGAR FREE UDC PO PRN (06:08)
[2020-12-19] MEDS: HYDROCODONE/ACETAMINOPHEN 5/325MG TABLET PO PRN (06:09)
[2020-12-19] MEDS: PANTOPRAZOLE SODIUM 40 MG/VIAL IV SCH (09:16)
[2020-12-19 14:37] VITALS: BP 139/79
== END 2020-12-19 15:15 | disposition home or self-care (01) | DRG 263 ==
LOC: ER 07:34 → 6EST 10:03 → EDBEDREQ 10:06 → EDBEDREQSVC 10:07 → ENRESERV 10:22
PROVIDERS: ADMIT Hospitalist; ATTEND Hospitalist
PROC: 0FT44ZZ Resection of Gallbladder, Percutaneous Endoscopic Approach (ICD-10-PCS; principal; 2020-12-16)
DX: K80.12 Calculus of gallbladder with acute and chronic cholecystitis without obstruction (principal); K56.7 Ileus, unspecified; R65.10 Systemic inflammatory response syndrome (SIRS) of non-infectious origin without acute organ dysfunction; K82.A1 Gangrene of gallbladder in cholecystitis; I10 Essential (primary) hypertension; J45.909 Unspecified asthma, uncomplicated; Z20.822 Contact with and (suspected) exposure to COVID-19; Z82.49 Family history of ischemic heart disease and other diseases of the circulatory system
CPT/HCPCS: 36415; 71045; 73706; 74176; 76705; 78227; 80053; 81003; 82150; 82962; 83605; 83615; 84145; 85025; 87426; 88304; 93005; 99285; A9537; C1893; C9113; J0690; J1170; J1956; J2175; J2250; J2270; J2405; J2543; J2704; J2710; J2765; J3010; J3490; J7030; J7040